=== PATIENT | female | born 1965 | race Caucasian/White ===

== ENCOUNTER 2017-09-04 11:47 | Emergency (ER) | payer BC ==
[~2017-09-04] VITALS: Ht 157.5 cm; Wt 54.4 kg
[~2017-09-04 11:47] MED LIST: DESYREL150 MG PO; LAMICTAL XR100 MG PO; NAPROSYN500 MG PO; NORCO 5-325 TA1 EACH PO; XANAX 0.5 MG0.5 MG PO; [UNRECOGNIZED DRUG - CODE]
[2017-09-04] MEDS ORDERED: ZICAM (12:02)
[2017-09-04] MEDS ORDERED: EXCEDRIN CAPLE1 EACH PO (12:02)
[2017-09-04 12:56] LABS: INFLUENZA A ANTIGEN None Detected (None Detect)
[2017-09-04] MEDS ORDERED: PROAIR HFA8.5 GM INH (13:00)
[2017-09-04] MEDS ORDERED: PROMETHAZINE V473 ML PO (13:00)
[2017-09-04] MEDS ORDERED: TESSALON PERLE100 MG PO (13:00)
[2017-09-04] MEDS ORDERED: ACETAMINOPHEN-1 EAC1 PO (13:00)
[2017-09-04] MEDS ORDERED: OSELB75 PO (13:08)
[2017-09-04 13:40] VITALS: BP 108/63
== END 2017-09-04 13:40 | disposition home or self-care (01) ==
LOC: M.ERS 11:47
PROVIDERS: Physician Assistant
DX: J11.1 Influenza due to unidentified influenza virus with other respiratory manifestations (principal); Z90.710 Acquired absence of both cervix and uterus

== ENCOUNTER 2018-03-17 12:58 | Emergency (ER) | payer BC ==
[~2018-03-17] VITALS: Ht 157.5 cm; Wt 56.7 kg
[~2018-03-17 12:58] MED LIST changes: +ACETAMINOPHEN-1 EAC1 PO; +EXCEDRIN CAPLE1 EACH PO; +OSELB75 PO; +PROAIR HFA8.5 GM INH; +PROMETHAZINE V473 ML PO; +TESSALON PERLE100 MG PO; +ZICAM
[2018-03-17] MEDS ORDERED: NATURE-THROI16.25 MG PO (13:13)
[2018-03-17] MEDS ORDERED: LUNESTA1 MG PO (13:13)
[2018-03-17] MEDS ORDERED: NABUMETONE 750750 M1 PO (15:09)
[2018-03-17] MEDS ORDERED: ROBAXIN 750 MG750 M1 PO (15:09)
[2018-03-17 15:31] VITALS: BP 111/69
== END 2018-03-17 15:32 | disposition home or self-care (01) ==
LOC: M.ERS 12:58
DX: S16.1XXA Strain of muscle, fascia and tendon at neck level, initial encounter (principal); S39.012A Strain of muscle, fascia and tendon of lower back, initial encounter; S29.012A Strain of muscle and tendon of back wall of thorax, initial encounter; V49.49XA Driver injured in collision with other motor vehicles in traffic accident, initial encounter; Y93.89 Activity, other specified; Y92.410 Unspecified street and highway as the place of occurrence of the external cause; Y99.8 Other external cause status

== ENCOUNTER 2018-06-11 20:15 | Emergency (ER) | payer BC ==
[~2018-06-11] VITALS: Ht 157.5 cm; Wt 56.2 kg
[~2018-06-11 20:15] MED LIST changes: +LUNESTA1 MG PO; +NABUMETONE 750750 M1 PO; +NATURE-THROI16.25 MG PO; +ROBAXIN 750 MG750 M1 PO
[2018-06-11 20:49] LABS: ABSOLUTE BASOPHILS 0.1 thou/uL (0.0-0.2); ABSOLUTE EOSINOPHILS 0.4 thou/uL (0.0-0.7); ABSOLUTE LYMPHOCYTES 3.1 thou/uL (0.8-5.3); ABSOLUTE MONOCYTES 0.8 thou/uL (0.0-1.2); BASOPHILS 1.1 %; EOSINOPHILS 5.6 %; HEMATOCRIT 36.9 % (37.0-47.0); HEMOGLOBIN 12.5 gm/dL (12.0-15.0); LYMPHOCYTES 42.1 %; MCHC 33.8 g/dL (28.0-37.0); MCV 97.7 fL (80.0-100.0); MONOCYTES 10.4 %; MPV 7.9 fl. (7.2-11.1); NUCLEATED RBCS 0 /100WBC; PLATELET COUNT* 318 thou/uL (150-400); POLYS 40.8 %; RBC 3.77 mil/uL (4.20-5.00); RDW-CV 12.9 % (10.5-14.5); WBC 7.3 thou/uL (4.0-11.0)
[2018-06-11 21:02] LABS: ANION GAP 7 mmol/L (7-16); BUN 12 mg/dL (7-18); CALCIUM 8.3 mg/dL (8.5-10.1); CHLORIDE 106 mmol/L (98-107); CO2 29 mmol/L (21-32); CREATININE 0.8 mg/dL (0.6-1.3); GLUCOSE 93 mg/dL (70-99); POTASSIUM 3.5 mmol/L (3.5-5.1); SODIUM 142 mmol/L (136-145)
[2018-06-11 21:12] LABS: ALBUMIN 3.3 g/dL (3.4-5.0); ALKALINE PHOSPHATASE 73 U/L (46-116); LIPASE 147 U/L (73-393); NT-PRO BRAIN NAT PEPTIDE 92 pg/mL (<300); SGOT 15 U/L (15-37); SGPT 22 U/L (30-65); TOTAL BILIRUBIN 0.1 mg/dL (<0.1-1.0); TOTAL PROTEIN 6.1 g/dL (6.4-8.2); TROPONIN-I LEVEL <0.06 ng/mL (<0.06)
[2018-06-11 21:25] LABS: INR 0.9; PROTIME 9.7 Seconds (9.20-11.50)
[2018-06-11 23:25] VITALS: BP 140/80
--- NOTE | 2018-06-13 11:18 | EKG ---
[place] [address] ELECTROCARDIOGRAM REPORT Name: WILIAN LUEVANO [id number] Admission: 06/11/18 Attend Phys: Discharge: 06/11/18 Date of : 65 Report #: [id number] THIS REPORT FOR: //name// [facility] ED Test Date: 2018-06-11 Test Time: 20:23:06 Pat Name: WILIAN LUEVANO Department: Room: Gender: F [employer] Aide: Arron BASILIO : 1965 Requested By: Mecca Maher Order Number: [id number] MD: Vinod Mora Measurements Intervals [place] Rate: 94 P: 44 [place]: 129 QRS: 41 QRSD: 87 T: 27 QT: 351 QTc: 439 Interpretive Statements Sinus rhythm Low voltage, precordial leads No previous ECG available for comparison Electronically Signed On 06-13-2018 11:18:23 EPIC [employer] ANALYST by Vinod Mora [email or web address] <ELECTRONICALLY SIGNED> By: Vinod Mora MD, [facility] 06/13/18 1118 22 22 Vinod Mora MD, FACC /EPI
== END 2018-06-11 23:25 | disposition home or self-care (01) ==
LOC: M.ERS 20:15
PROVIDERS: Emergency Medicine
DX: R07.89 Other chest pain (principal); J45.909 Unspecified asthma, uncomplicated; E03.9 Hypothyroidism, unspecified; F90.9 Attention-deficit hyperactivity disorder, unspecified type; Z90.711 Acquired absence of uterus with remaining cervical stump